=== PATIENT | female | born 1945 | race Caucasian/White ===

== ENCOUNTER 2018-05-24 20:28 | Observation (INO) ==
[2018-05-24] MEDS ORDERED: Famotidine PF Inj 20 MG/2 ML Vial IV.PUSH ONE (22:24)
[2018-05-24] MEDS ORDERED: Sod Chloride 0.9% Inj 1,000 ML IV.SIG ONE (22:24)
[2018-05-24] MEDS ORDERED: Morphine Inj 4 MG/ML Vial IV.PUSH ONE (22:24)
--- NOTE | 2018-05-24 22:41 | ED ---
HPI General Chief Complaint: Abdominal Pain Stated Complaint: N/V/D FEVER Time Seen by Provider: 05/24/18 22:12 Source: patient Mode of arrival: ambulatory Limitations: no limitations History of Present Illness HPI narrative: 73-year-old female complains of abdominal pain, nausea vomiting diarrhea, fever and body ache. Patient states that her symptoms started last night. Patient states that the abdominal pain and cramping pain intermittent pain localized to the upper abdomen. Patient denies any pain radiation. Patient states that she has mucus in the stool but no blood in the stool. Patient states that the stool smells strongly. Patient states that she has history of C. difficile about 2 years ago and the stool smells the same. Patient denies any headache. Patient denies any neck pain. Patient denies any chest pain or shortness of breath. Patient denies any dysuria or frequency. Patient denies any vaginal discharge or bleeding. Patient has history of hypertension. Patient states that she had fever at home up to 101.6 degrees this evening prior to arrival. MD complaint: Reports abdominal pain Onset (ago): hour(s) Pain Consistency: intermittent Location: Reports LUQ, RUQ and epigastric Severity: moderate Severity scale (1-10): 6 Quality: Reports cramping Radiation: Reports none Migration to: Reports no migration Relieving factors: nothing Exacerbating factors: nothing Associated symptoms: Reports nausea, vomiting, diarrhea and fever Related Data Home Medications Medication Instructions Recorded Confirmed Lactobacillus acidophilus 1 tab PO DAILY 05/24/18 05/24/18 [Acidophilus] ascorbic acid (vitamin C) [Vitamin 500 mg PO DAILY 05/24/18 05/24/18 C] aspirin 81 mg PO DAILY 05/24/18 05/24/18 cetirizine [Zyrtec] 10 mg PO DAILY 05/24/18 05/24/18 [id number] 2 tab PO DAILY 05/24/18 05/24/18 [Osteo Bi-Flex Triple Strength] levothyroxine 50 mcg PO DAILY 05/24/18 05/24/18 multivitamin 1 tab PO DAILY 05/24/18 05/24/18 omega-3 acid ethyl esters 2 cap PO BID 05/24/18 05/24/18 tramadol 50 mg PO QID 11/06/18 11/06/18 valsartan-hydrochlorothiazide 1 tab PO DAILY 05/24/18 05/24/18 Allergies Allergy/AdvReac Type Severity Reaction Status Date / Time ciprofloxacin [From Cipro] Allergy Rash Verified 05/24/18 20:46 levofloxacin [From Levaquin] Allergy Rash Verified 05/24/18 20:46 nitrofurantoin Allergy Rash Verified 05/24/18 20:46 [From Macrobid] Penicillins Allergy Rash Verified 05/24/18 20:46 Review of Systems ROS: all other systems reviewed are negative [facility] Medical History Medical History Accelerated hypertension (Acute) Clostridium difficile infection (Acute) History of hysterectomy (Acute) Hypothyroid (Acute) Hypothyroid (Acute) Pacemaker (Acute) Surgical History Surgical History Hx of tonsillectomy (Acute) Social History Social History Substance History: No History of Abuse Second Hand Smoke Exposure: No Smoking Status: Never smoker How Often Do You Have a Drink Containing Alcohol: Monthly or less Recent Travel in [facility] within the Last 8 Weeks: No Recent Out of Country Travel within the Last 8 Weeks: No Immunization History Tetanus Immunization: <5 Years Exam Narrative Exam Narrative: GENERAL: Well-nourished, well-developed patient. SKIN: Focused skin assessment warm/dry. HEAD: Normocephalic. EYES: No scleral icterus. No injection or drainage. NECK: Supple, trachea midline. No JVD or lymphadenopathy. CARDIOVASCULAR: Regular rate and rhythm without murmurs, gallops, or rubs. RESPIRATORY: Breath sounds equal bilaterally. No accessory muscle use. GASTROINTESTINAL: Abdomen soft, non-tender, nondistended. MUSCULOSKELETAL: No cyanosis, or edema. BACK: Nontender without obvious deformity. No CVA tenderness. Neurologic exam normal. Course Initial Documented Vital Signs Temperature 99.8 F H 05/24/18 20:38 Pulse Rate 115 H 05/24/18 20:38 Respiratory Rate 16 05/24/18 20:38 Blood Pressure 147/71 H 05/24/18 20:38 Pulse Oximetry 98 05/24/18 20:38 Last Documented Vital Signs Temperature 99.8 F H 05/24/18 20:38 Pulse Rate 115 H 05/24/18 20:38 Respiratory Rate 16 05/24/18 20:38 Blood Pressure 147/71 H 05/24/18 20:38 Pulse Oximetry 98 05/24/18 20:38 Medical Decision Making MDM Narrative Medical decision making narrative: 73-year-old female with abdominal pain, nausea vomiting diarrhea, fever, body ache. Normal saline solution 1 L IV bolus. Pepcid 20 mg IV. Morphine 2 mg IV. Zofran 4 mg IV. Flagyl 500 mg IV. Vancomycin 1 g IV. Normal saline solution 125 cc an hour. Medical Screen Exam Complete: Yes Emergency Medical Condition: Yes Differential Diagnosis Differential Diagnosis: Differential diagnosis including viral syndrome, gastroenteritis, gastritis, PUD, pancreatitis, cholecystitis, colitis, UTI, pyelonephritis, nephrolithiasis, sepsis. Lab Data Lab results reviewed: Yes I reviewed the patient's lab results. Result diagrams: 05/24/18 23:00 05/24/18 23:00 Lab Results 05/24/18 05/24/18 05/24/18 Range/Units 23:00 23:00 23:00 CBC w Diff Auto diff final WBC 7.6 (4.0-11.0) th/mm3 RBC 4.64 (4.00-5.30) mil/mm3 Hgb 14.0 (11.6-15.3) gm/dL Hct 41.3 (35.0-46.0) % MCV 89.0 (80.0-100.0) fL MCH 30.2 (27.0-34.0) pg MCHC 33.9 (32.0-36.0) % RDW 13.3 (11.6-17.2) % Plt Count 139 L (150-450) th/mm3 MPV 7.3 (7.0-11.0) fL Neut % (Auto) 79.5 H (16.0-70.0) % Lymph % (Auto) 13.2 (9.0-44.0) % Loup % (Auto) 6.2 (0.0-8.0) % Eos % (Auto) 0.1 (0.0-4.0) % Baso % (Auto) 1.0 (0.0-2.0) % Neut # (Auto) 6.0 (1.8-7.7) th/mm3 Lymph # (Auto) 1.0 (1.0-4.8) th/mm3 Loup # (Auto) 0.5 (0.0-0.9) th/mm3 Eos # (Auto) 0.0 (0.0-0.4) th/mm3 Baso # (Auto) 0.1 (0.0-0.2) th/mm3 WBC Differential . Differential Comment . PT 10.2 (9.8-11.6) sec INR 1.0 Ratio APTT 27.3 (23.4-31.7) sec Sodium 137 (136-145) meq/L Potassium 3.9 (3.5-5.1) meq/L Chloride 105 (98-107) meq/L Carbon Dioxide 22.9 (21.0-32.0) meq/L Anion Gap 9 (5-15) meq/L BUN 18 (7-18) mg/dL Creatinine 1.00 (0.50-1.00) mg/dL Estimated GFR 55 L (>89) mL/min Random Glucose 98 (74-106) mg/dL Calcium 9.2 (8.5-10.1) mg/dL Total Bilirubin 0.7 (0.2-1.0) mg/dL AST 38 H (15-37) U/L ALT 55 H (10-53) U/L Alkaline Phosphatase 60 (45-117) U/L Total Protein 6.6 (6.4-8.2) g/dL Albumin 3.0 L (3.4-5.0) g/dL Lipase 92 (73-393) U/L Imaging Data Attestation: I personally reviewed and interpreted this imaging study as follows : Radiologist's impression: Abdomen/Pelvis CT 05/24/18 22:24 CONCLUSION: Changes involving the right colon suggestive of mild colitis Discharge Plan Discharge Disposition Patient Disposition: 30 Still Patient Discharge Details Diagnosis: Colitis Physicians Team ED Provider: Fletcher Torres Primary Care Provider: Primary Care ThomasiCynthia Rxs /Orders / Referrals /Forms Prescriptions: No Action multivitamin Tablet 1 tab PO DAILY RF: 0 ascorbic acid (vitamin C) [Vitamin C] 1,000 mg Tablet 500 mg PO DAILY RF: 0 tramadol 50 mg Tablet 50 mg PO QID RF: 0 valsartan-hydrochlorothiazide 80-12.5 mg Tablet 1 tab PO DAILY RF: 0 levothyroxine 50 mcg Tablet 50 mcg PO DAILY RF: 0 aspirin 81 mg Tablet,Chewable 81 mg PO DAILY RF: 0 Lactobacillus acidophilus [Acidophilus] Capsule 1 tab PO DAILY RF: 0 omega-3 acid ethyl esters 1 gram Capsule 2 cap PO BID RF: 0 cetirizine [Zyrtec] 10 mg Capsule 10 mg PO DAILY RF: 0 [id number]-antonio-bosw [Osteo Bi-Flex Triple Strength] 750 mg-644 mg- 30 mg-1 mg Tablet 2 tab PO DAILY RF: 0 Status ED Status: With Doctor
[2018-05-24 23:23] LABS: Baso # (Auto) 0.1 th/mm3 (0.0-0.2); Eos % (Auto) 0.1 % (0.0-4.0); Hematocrit 41.3 % (35.0-46.0); Lymph % (Auto) 13.2 % (9.0-44.0); Mean Corpuscular HGB Conc 33.9 % (32.0-36.0); Mean Corpuscular Hemoglobin 30.2 pg (27.0-34.0); Mean Platelet Volume 7.3 fL (7.0-11.0); Mono # (Auto) 0.5 th/mm3 (0.0-0.9); Mono % (Auto) 6.2 % (0.0-8.0); Neut % (Auto) 79.5 % (16.0-70.0); Platelet Count 139 th/mm3 (150-450); Red Blood Count 4.64 mil/mm3 (4.00-5.30); Red Cell Distribution Width 13.3 % (11.6-17.2); White Blood Count 7.6 th/mm3 (4.0-11.0)
[2018-05-24 23:31] LABS: Chloride 105 meq/L (98-107); Potassium 3.9 meq/L (3.5-5.1); Sodium 137 meq/L (136-145)
[2018-05-24 23:34] LABS: Calcium 9.2 mg/dL (8.5-10.1)
[2018-05-24 23:35] LABS: Anion Gap 9 meq/L (5-15); Blood Urea Nitrogen 18 mg/dL (7-18); Carbon Dioxide 22.9 meq/L (21.0-32.0); Glucose,Random 98 mg/dL (74-106); Lipase 92 U/L (73-393)
[2018-05-24 23:37] LABS: Activated Partial Thrombo Time 27.3 sec (23.4-31.7); Prothrombin Time 10.2 sec (9.8-11.6)
[2018-05-24 23:38] LABS: Alanine Aminotransferase 55 U/L (10-53); Aspartate Aminotransferase 38 U/L (15-37); Glomerular Filtration Rate 55 mL/min (>89)
[2018-05-24 23:39] LABS: Total Protein 6.6 g/dL (6.4-8.2)
[2018-05-24 23:41] LABS: Alkaline Phosphatase 60 U/L (45-117)
--- NOTE | 2018-05-25 00:10 | CT ---
EXAM DATE: 05/24/2018 11:59 PM EST AGE/SEX: 73 years / Female INDICATIONS: Abdominal pain. Nausea. Vomiting. Diarrhea. Fever. CLINICAL DATA: This is the patient's initial encounter. Patient reports that signs and symptoms have been present for 1 day and indicates a pain score of 5/10. MEDICAL/SURGICAL HISTORY: Hypertension. Hysterectomy. CABG. ORAL CONTRAST: No oral contrast ingested. RADIATION DOSE: 11.64 CTDI (mGy) COMPARISON: No prior exams available for comparison. TECHNIQUE: Multiple contiguous axial images were obtained through the abdomen and pelvis following b olus infusion of 100 ml Omnipaque 350 (iohexol) nonionic water-soluble contrast as a single exam do se. No oral contrast ingested. Using automated exposure control and adjustment of the mA and/or kV a ccording to patient size, radiation dose was kept as low as reasonably achievable to obtain optimal d iagnostic quality images. DICOM format image data is available electronically for review and compari son. FINDINGS: Lower Lungs: The visualized lower lungs are clear. Liver: The liver has a homogeneous density without space-occupying lesion. There is no dilation of th e biliary tree. Spleen: Homogeneous density without enlargement. Pancreas: Unremarkable without mass or calcification. Kidneys: Tiny cyst arising in the posterior medial midpole cortex of the left kidney. Adrenal Glands: Unremarkable. Aorta: The aorta and proximal iliac vessels are grossly unremarkable without aneurysmal dilation. Bowel/Mesentery: There appears to be some concentric fold thickening/wall thickening in the right co gemma, most notably in the mid ascending region. There is slight adjacent fatty tissue induration.. The bowel is nondilated throughout. Abdominal Wall: Intact. Retroperitoneum: No evidence of adenopathy in the retrocrural, para-aortic, or deep pelvic regions. Bladder: Contours are smooth. Reproductive Organs: Uterus surgically absent. No evidence of pelvic mass or free fluid. Inguinal: The inguinal region is unremarkable without evidence of adenopathy. Bony Structures: Unremarkable. CONCLUSION: Changes involving the right colon suggestive of mild colitis Electronically signed by: Moiz Vazquez MD 05/25/2018 12:08 AM EST
[2018-05-25] MEDS ORDERED: Vancomycin Inj 1,000 MG in Sodium Chlor 0.9% Inj 250 ML IV.SIG ONE (00:19)
[2018-05-25 00:35] LABS: Bilirubin,Urine Negative (Negative); Clarity,Urine Clear (Clear); Color,Urine Yellow (Yellw/Straw); Glucose,Urine (UA) Negative (Negative); Leukocyte Esterase,Urine Negative (Negative); Nitrite,Urine Negative (Negative); PH,Urine 5.5 (5.0-8.5); Specific Gravity,Urine Less/Equal 1.005 (1.002-1.035); Urobilinogen,Urine 0.2 mg/dL (Less than 2)
[2018-05-25 00:40] LABS: Bacteria,Urine Occasional /hpf; RBC,Urine 0-3 /hpf (0-3); Squamous Epithelial Cell,Urine 0-5 /hpf (0-5)
[2018-05-25] MEDS: Sod Chloride 0.9% Inj 1,000 ML IV.CONT SCH ×2 (02:25→15:27)
[2018-05-25 11:17] LABS: Hepatitits B Surface Antigen Nonreactive (Nonreactive)
[2018-05-25 11:21] LABS: Hepatitis A IgM Antibody Nonreactive (Nonreactive)
[2018-05-25] MEDS ORDERED: Non-Formulary Drug (Valsartan-Hydrochlorothiazide [Valsartan-Hydrochlorothiazide] 1 TAB) PO SCH (14:45)
--- NOTE | 2018-05-25 15:01 | P.HPIM ---
[facility] No Primary Care Physician Chief Complaint: Nausea vomiting diarrhea History of Present Illness: 73-year-old white female with a history of hypothyroidism, C. difficile presents with 2-day history of right-sided abdominal pain, nausea, vomiting, diarrhea, and fever. Patient reports having loose stools almost every hour and due to the symptoms came to the emergency room for evaluation. She also reports a history of C. difficile and was worried that this may be a recurrence of her C. difficile. She has not seen any blood in her stools. She has not had any unusual food intake during the past week. She reports she had a colonoscopy performed about 2 years ago which only showed some polyps. She has not had any recent weight loss. Diagnosis (1) Colitis: Review of Systems ROS: all other systems reviewed are negative [facility] Medical History Medical History Hypothyroid (Acute) Accelerated hypertension (Chronic) Clostridium difficile infection (Chronic) Hypothyroid (Chronic) Surgical History Surgical History History of hysterectomy (Chronic) Hx of tonsillectomy (Chronic) Pacemaker (Chronic) Family History Family History Father Colon cancer Social History Social History Substance History: No History of Abuse Second Hand Smoke Exposure: No Smoking Status: Never smoker How Often Do You Have a Drink Containing Alcohol: Never Recent Travel in [facility] within the Last 8 Weeks: No Recent Out of Country Travel within the Last 8 Weeks: No Immunization History Tetanus Immunization: <5 Years Medications and Allergies Allergies Allergy/AdvReac Type Severity Reaction Status Date / Time ciprofloxacin [From Cipro] Allergy Rash Verified 05/24/18 20:46 levofloxacin [From Levaquin] Allergy Rash Verified 05/24/18 20:46 nitrofurantoin Allergy Rash Verified 05/24/18 20:46 [From Macrobid] Penicillins Allergy Rash Verified 05/24/18 20:46 Home Medications Medication Instructions Recorded Confirmed Type Lactobacillus acidophilus 1 tab PO DAILY 05/24/18 05/24/18 History [Acidophilus] ascorbic acid (vitamin C) [Vitamin 500 mg PO DAILY 05/24/18 05/24/18 History C] aspirin 81 mg PO DAILY 05/24/18 05/24/18 History cetirizine [Zyrtec] 10 mg PO DAILY 05/24/18 05/24/18 History [id number]-C-antonio-bosw 2 tab PO DAILY 05/24/18 05/24/18 History [Osteo Bi-Flex Triple Strength] levothyroxine 50 mcg PO DAILY 05/24/18 05/24/18 History multivitamin 1 tab PO DAILY 05/24/18 05/24/18 History omega-3 acid ethyl esters 2 cap PO BID 05/24/18 05/24/18 History tramadol 50 mg PO QID 05/24/18 05/24/18 History valsartan-hydrochlorothiazide 1 tab PO DAILY 05/24/18 05/24/18 History Active Medications: Active Medications Aspirin (Aspirin Chew) 81 mg PO DAILY SHAKIR Aztreonam 1,000 mg/ Sodium (Chloride) 100 mls @ 200 mls/hr IV.SIG Q8H [facility] Last Infusion: 05/25/18 09:01 Dose: Infused Metronidazole/Sodium Chloride (Flagyl 500 Mg Inj) 100 mls @ 100 mls/hr IV.SIG Q6H SHAKIR Last Infusion: 05/25/18 10:00 Dose: Infused Sodium Chloride (Ns Inj) 1,000 mls @ 100 mls/hr IV.CONT .Q10H SHAKIR Last Admin: 05/25/18 02:25 Dose: 100 mls/hr Lactobacillus Acidophilus (Lactinex) 1 tab PO BID [facility] Levothyroxine Sodium (Synthroid) 50 mcg PO DAILY [facility] Non-Formulary Medication (Cetirizine [Zyrtec]) 10 mg PO DAILY [facility] Non-Formulary Medication (Valsartan-Hydrochlorothiazide [Valsartan- Hydrochlorothiazide]) 1 tab PO DAILY [facility] Ondansetron HCl (Zofran Inj) 4 mg IV.PUSH Q6H PRN PRN Reason: NAUSEA OR VOMITING Tramadol HCl (Ultram) 50 mg PO Q6H PRN PRN Reason: pain 1 to 10 Physical Exam Vital signs: Last Vital Signs Temp 100.1 F H 05/25/18 12:00 Pulse 92 H 05/25/18 12:00 Resp 20 05/25/18 12:00 BP 130/60 05/25/18 12:00 Pulse Ox 96 05/25/18 12:00 Intake & Output 05/23/18 05/24/18 05/25/18 05/26/18 06:59 06:59 06:59 06:59 Intake Total 1830 / 1830 200 / 200 Output Total 650 / 650 Balance 1180 / 1180 200 / 200 Weight 68.1 kg Narrative: GENERAL: Well-nourished well-developed white female no acute distress SKIN: Warm and dry. HEAD: Atraumatic. Normocephalic. EYES: Pupils equal and round. No scleral icterus. No injection or drainage. ENT: No nasal bleeding or discharge. Mucous membranes pink and moist. NECK: Trachea midline. No JVD. CARDIOVASCULAR: Regular rate and rhythm. RESPIRATORY: No accessory muscle use. Clear to auscultation. Breath sounds equal bilaterally. GASTROINTESTINAL: Abdomen soft, mild right lower quadrant abdominal tenderness with no rebound or guarding, nondistended. Hepatic and splenic margins not palpable. Normoactive bowel sounds MUSCULOSKELETAL: Extremities without clubbing, cyanosis, or edema. No obvious deformities. NEUROLOGICAL: Awake and alert. No obvious cranial nerve deficits. Motor grossly within normal limits. Five out of 5 muscle strength in the arms and legs. Normal speech. PSYCHIATRIC: Appropriate mood and affect; insight and judgment normal. Assessment and Plan (1) Colitis: Code(s): K52.9 - Noninfective gastroenteritis and colitis, unspecified Status: Acute Plan 73-year-old white female with a history of hypothyroidism, hypertension presents with a 2-day history of intractable nausea, vomiting, diarrhea, and fever 1. Acute colitis -patient has been started on Flagyl and Azactam due to allergies with Cipro and penicillin, C. difficile results are negative, continue IV fluid hydration supportive care, Lactinex. Patient counseled to follow with GI as an outpatient after treatment course for evaluation for colonoscopy. Placed on clear liquid diet which she has tolerated overnight, will advance to full liquid as tolerated. 2. History of hypothyroidism-resume Synthroid 3. History of hypertension, resume home antihypertensives. H&P: Quality VTE Deep Vein Thrombosis/Pulmonary Embolism Present on Admission: No
[2018-05-25] MEDS: Lactobacillus Acidophilus/L. Spores Tablet PO SCH ×2 (15:45→23:14)
[2018-05-25] MEDS ORDERED: Loperamide 2 MG Capsule PO ONE (17:44)
[2018-05-25] MEDS ORDERED: Acetaminophen 325 MG Tablet PO PRN (17:45)
[2018-05-26] MEDS: Sod Chloride 0.9% Inj 1,000 ML IV.CONT SCH ×3 (04:11→18:26)
[2018-05-26 08:51] LABS: Baso % (Auto) 0.7 % (0.0-2.0); Eos % (Auto) 0.5 % (0.0-4.0); Hematocrit 32.9 % (35.0-46.0); Hemoglobin 11.5 gm/dL (11.6-15.3); Lymph # (Auto) 0.9 th/mm3 (1.0-4.8); Lymph % (Auto) 21.1 % (9.0-44.0); Mean Corpuscular Volume 88.5 fL (80.0-100.0); Mean Platelet Volume 7.4 fL (7.0-11.0); Mono # (Auto) 0.4 th/mm3 (0.0-0.9); Mono % (Auto) 8.9 % (0.0-8.0); Neut # (Auto) 2.8 th/mm3 (1.8-7.7); Neut % (Auto) 68.8 % (16.0-70.0); Platelet Count 98 th/mm3 (150-450); Red Blood Count 3.72 mil/mm3 (4.00-5.30); Red Cell Distribution Width 13.9 % (11.6-17.2); White Blood Count 4.1 th/mm3 (4.0-11.0)
[2018-05-26 08:52] LABS: Platelet Morphology Normal (Normal)
[2018-05-26 08:56] LABS: Calcium 8.2 mg/dL (8.5-10.1); Carbon Dioxide 20.5 meq/L (21.0-32.0); Potassium 3.8 meq/L (3.5-5.1)
[2018-05-26] MEDS ORDERED: HCTZ PO SCH (09:00)
[2018-05-26] MEDS ORDERED: VALSARTAN PO SCH (09:00)
[2018-05-26] MEDS: Lactobacillus Acidophilus/L. Spores Tablet PO SCH ×2 (09:14→20:35)
[2018-05-26] MEDS: Levothyroxine 50 MCG Tablet PO SCH (09:14)
--- NOTE | 2018-05-26 10:49 | P.PNIM ---
Subjective Interval history: Follow-up colitis and black stools. Patient seen and examined, sitting in bed comfortably no apparent distress. Patient states that she has had two bouts of black tarry diarrhea since midnight. Low-grade temperatures overnight. Has been tolerating clear liquids without any nausea or vomiting or abdominal pain. Physical Exam Vital signs: Vital Signs 05/25/18 12:00 05/25/18 20:00 05/26/18 00:00 Temperature 100.1 F H 100.7 F H 99.7 F H Pulse Rate 92 H 87 88 Respiratory Rate 20 20 20 Blood Pressure 130/60 132/62 128/60 Pulse Oximetry 96 96 94 L 05/26/18 02:20 05/26/18 08:00 05/26/18 09:12 Temperature 100.7 F H 98.7 F Pulse Rate 82 Respiratory Rate 18 16 Blood Pressure 128/62 Pulse Oximetry 97 Intake & Output 05/25/18 05/26/18 05/26/18 18:59 06:59 18:59 Intake Total 1625 / 1625 2460 / 2460 Balance 1625 / 1625 2460 / 2460 Weight 68.6 kg Intake: IV 1400 / 1400 2400 / 2400 NS Inj 1,000 ML @ 100 mls/hr IV 1000 / 1000 2000 / 2000 .CONT .Q10H SHAKIR Rx#:[id number] Azactam Inj 1,000 MG In NS Inj 200 / 200 200 / 200 100 ML @ 200 mls/hr IV.SIG Q8H SHAKIR Rx#:[id number] Flagyl 500 MG Inj 100 ML @ 100 200 / 200 200 / 200 mls/hr IV.SIG Q6H SHAKIR Rx#: [id number] Oral 225 / 225 60 / 60 Other: # Voids 5 2 Date of Last Bowel Movement 05/25/18 # Bowel Movements 5 3 Narrative: GENERAL: Well-nourished well-developed white female no acute distress SKIN: Warm and dry. HEAD: Atraumatic. Normocephalic. EYES: Pupils equal and round. No scleral icterus. No injection or drainage. ENT: No nasal bleeding or discharge. Mucous membranes pink and moist. NECK: Trachea midline. No JVD. CARDIOVASCULAR: Regular rate and rhythm. RESPIRATORY: No accessory muscle use. Clear to auscultation. Breath sounds equal bilaterally. GASTROINTESTINAL: Abdomen soft, mild right and left lower quadrant abdominal tenderness with no rebound or guarding, nondistended. Normoactive bowel sounds MUSCULOSKELETAL: Extremities without clubbing, cyanosis, or edema. No obvious deformities. NEUROLOGICAL: Awake and alert. No obvious cranial nerve deficits. Motor grossly within normal limits. Five out of 5 muscle strength in the arms and legs. Normal speech. PSYCHIATRIC: Appropriate mood and affect; insight and judgment normal. Results - Labs CBC & Chem 7: 05/26/18 07:30 05/26/18 07:30 Laboratory Results - last 24 hr 05/25/18 05/25/18 05/26/18 04:51 06:10 07:30 CBC w Diff Slide review pending WBC 4.1 RBC 3.72 L Hgb 11.5 L D Hct 32.9 L MCV 88.5 MCH 31.0 MCHC 35.0 RDW 13.9 Plt Count 98 L MPV 7.4 Neut % (Auto) 68.8 Lymph % (Auto) 21.1 Rowan % (Auto) 8.9 H Eos % (Auto) 0.5 Baso % (Auto) 0.7 Neut # (Auto) 2.8 Lymph # (Auto) 0.9 L Rowan # (Auto) 0.4 Eos # (Auto) 0.0 Baso # (Auto) 0.0 WBC Differential . Diff Scan Auto diff confirmed Differential Comment . Platelet Estimate Low L Platelet Morphology Normal Sodium Potassium Chloride Carbon Dioxide Anion Gap BUN Creatinine Estimated GFR Random Glucose Calcium Stl C.difficile DNA Amp Negative St C. diff Tox Epid 027 Negative Hepatitis A IgM Ab Nonreactive Hep Bs Antigen Nonreactive Hep B Core IgM Ab Nonreactive Hep C IgG Ab Nonreactive 05/26/18 07:30 CBC w Diff WBC RBC Hgb Hct MCV MCH MCHC RDW Plt Count MPV Neut % (Auto) Lymph % (Auto) Rowan % (Auto) Eos % (Auto) Baso % (Auto) Neut # (Auto) Lymph # (Auto) Rowan # (Auto) Eos # (Auto) Baso # (Auto) WBC Differential Diff Scan Differential Comment Platelet Estimate Platelet Morphology Sodium 141 Potassium 3.8 Chloride 113 H D Carbon Dioxide 20.5 L Anion Gap 8 BUN 10 Creatinine 0.73 Estimated GFR 79 L Random Glucose 93 Calcium 8.2 L D Stl C.difficile DNA Amp St C. diff Tox Epid 027 Hepatitis A IgM Ab Hep Bs Antigen Hep B Core IgM Ab Hep C IgG Ab Microbiology 05/24/18 23:10 Blood - Peripheral Aerobic Blood Culture - Preliminary No growth in 1 day 05/24/18 23:10 Blood - Peripheral Anaerobic Blood Culture - Preliminary No growth in 1 day 05/24/18 23:00 Blood - Peripheral Aerobic Blood Culture - Preliminary No growth in 1 day 05/24/18 23:00 Blood - Peripheral Anaerobic Blood Culture - Preliminary No growth in 1 day Assessment and Plan - Assessment (1) Colitis Code(s): K52.9 - Noninfective gastroenteritis and colitis, unspecified Status : Acute (2) GI bleed Code(s): K92.2 - Gastrointestinal hemorrhage, unspecified Status: Acute - Plan This is a 73-year-old white female with a history of hypothyroidism, hypertension presents with a 2-day history of intractable nausea, vomiting, diarrhea, and fever. Acute colitis GI bleed -Abdomen/pelvis CT showing signs of mild colitis. -Patient has been started on Flagyl and Azactam due to allergies with Cipro and penicillin. Continue Lactinex. -Still having low-grade fevers overnight. -C. difficile results are negative. -Continue IV fluid hydration. Tolerating clear liquids for now. Nausea and vomiting improved. -Patient was initially counseled to follow-up with GI outpatient for an evaluation of a colonoscopy, although patient has complaints of black tarry stool this morning. -Gastroenterology has been consulted and awaiting input and recommendations. -Will trend H&H's. Did drop overnight, hemoglobin 14-11.5 today. This may be dilutional or secondary to active bleeding. -Check occult stool. -Pain control with Ultram, no pain at this present time. History of hypothyroidism: Resume Synthroid. History of hypertension:Resume home antihypertensives. DVT prophylaxis: SCDs. Hold chemical prophylaxis for now, possible bleeding. Discharge Planning: Awaiting gastroenterology input as well as clinical improvement. Still having fevers
[2018-05-26] MEDS: Pantoprazole Inj 40 MG Vial IV.PUSH SCH (13:03)
[2018-05-26 13:40] LABS: Hematocrit 37.1 % (35.0-46.0); Hemoglobin 11.9 gm/dL (11.6-15.3)
[2018-05-26 14:39] LABS: % Iron Saturation 8.2 % (20-50)
[2018-05-26] MEDS: VALSARTAN 80 MG PO SCH (17:06)
[2018-05-26] MEDS ORDERED: PEG 3350/E-Lyte Soln 4000 ML Bottle PO ONE (17:18)
--- NOTE | 2018-05-26 18:22 | MB ---
cc: Rowena Frances MD, Shahabuddin DO Katie, Malan MD DATE: 05/26/2018 PRIMARY CARE PHYSICIAN: Eugenia Gonzales MD REQUESTING PHYSICIAN: Nehemias Batista DO REASON FOR CONSULTATION: Colitis, abdominal pain with diarrhea. HISTORY OF PRESENT ILLNESS: Ms. Patel is a 73-year-old lady admitted with diarrhea for a few days associated with nausea, vomiting and fevers. She said this felt similar to her C. difficile infection which she had 7 years ago after knee surgery requiring antibiotics. Stool studies have been obtained and they are unremarkable for C. difficile at this time. Her last colonoscopy was about 2 years ago, which she reports as being normal. REVIEW OF SYSTEMS: Currently still having diarrhea, but no nausea, vomiting or abdominal pain. PAST MEDICAL HISTORY: Hypothyroidism, hypertension, previous C. difficile infection, hypothyroidism. PAST SURGICAL HISTORY: Hysterectomy, tonsillectomy, pacemaker placement, colonoscopy 2-3 years ago. FAMILY HISTORY: Significant for colon cancer. SOCIAL HISTORY: No tobacco, no alcohol reported. PHYSICAL EXAMINATION: GENERAL: Reveals a well-nourished lady in no apparent distress. VITAL SIGNS: Stable. HEAD AND NECK: Anicteric sclerae. CHEST: Bilateral air entry with rales. ABDOMEN: Soft, some tenderness in the right lower quadrant. No guarding, no rigidity. CENTRAL NERVOUS SYSTEM: Nonfocal. LABORATORY DATA: Reveal white cell count of 4.1, hemoglobin 11.9. Creatinine is 0.73, AST 38, ALT 55. CT of the abdomen and pelvis reveals right-sided colitis. IMPRESSION: Right-sided colitis with possible melena. RECOMMENDATIONS: EGD and colonoscopy discussed with the patient. She is agreeable. This will be planned for tomorrow. GoLYTELY prep will be used. Continue to monitor labs. Further recommendations to follow after the above. Thank you for this referral. Rowena Frances MD HZ/neel , 05:18 PM , 05:27 PM
[2018-05-26 20:24] LABS: Hematocrit 37.2 % (35.0-46.0); Hemoglobin 12.6 gm/dL (11.6-15.3)
[2018-05-27] MEDS: Sod Chloride 0.9% Inj 1,000 ML IV.CONT SCH ×2 (01:56→16:13)
[2018-05-27 07:08] LABS: Baso % (Auto) 0.4 % (0.0-2.0); Eos # (Auto) 0.1 th/mm3 (0.0-0.4); Eos % (Auto) 1.6 % (0.0-4.0); Hematocrit 33.2 % (35.0-46.0); Hemoglobin 11.7 gm/dL (11.6-15.3); Lymph # (Auto) 1.5 th/mm3 (1.0-4.8); Lymph % (Auto) 32.1 % (9.0-44.0); Mean Corpuscular HGB Conc 35.2 % (32.0-36.0); Mean Corpuscular Hemoglobin 30.8 pg (27.0-34.0); Mean Corpuscular Volume 87.7 fL (80.0-100.0); Mean Platelet Volume 7.3 fL (7.0-11.0); Mono # (Auto) 0.5 th/mm3 (0.0-0.9); Mono % (Auto) 10.5 % (0.0-8.0); Neut # (Auto) 2.4 th/mm3 (1.8-7.7); Neut % (Auto) 55.4 % (16.0-70.0); Platelet Count 88 th/mm3 (150-450); Red Blood Count 3.79 mil/mm3 (4.00-5.30); Red Cell Distribution Width 13.9 % (11.6-17.2); White Blood Count 4.5 th/mm3 (4.0-11.0)
[2018-05-27 07:31] LABS: RBC Morphology Normal (Normal)
[2018-05-27 07:32] LABS: Platelet Morphology Normal (Normal)
[2018-05-27] MEDS: Levothyroxine 50 MCG Tablet PO SCH (08:39)
[2018-05-27] MEDS: Lactobacillus Acidophilus/L. Spores Tablet PO SCH (08:39)
[2018-05-27] MEDS: VALSARTAN 80 MG PO SCH (10:11)
[2018-05-27] MEDS: Pantoprazole Inj 40 MG Vial IV.PUSH SCH (10:11)
[2018-05-27 10:19] VITALS: RESP 16
[2018-05-27] MEDS ORDERED: Chlorhexidine Gluconate 2% 1 Pack (2 Cloths) TOPICAL ONE (12:26)
[2018-05-27] MEDS ORDERED: Metoprolol Tartrate 25 MG Tablet PO ONE (12:26)
--- NOTE | 2018-05-27 12:48 | P.PNIM ---
Subjective Interval history: 73-year-old female who is seen and examined today for follow-up on colitis and melena. Patient states that she underwent prep for colonoscopy last night and had documented every time that she had a bowel movement which was approximately 13 times. Patient denies any coloration to the stool at this time. Patient is concerned that she may have infectious diarrhea. I discussed with her that the C. difficile culture was negative. She indicates that she has some chicken and she was worried about Salmonella. Patient blood pressure is mildly elevated. Patient remains afebrile Physical Exam Vital signs: Vital Signs 05/26/18 16:00 05/26/18 20:00 05/27/18 00:00 Temperature 98.7 F 99 F 97.7 F Pulse Rate 79 70 73 Respiratory Rate 17 20 20 Blood Pressure 150/68 H 142/85 H 141/73 H Pulse Oximetry 98 96 99 05/27/18 08:00 Temperature 97.7 F Pulse Rate 66 Respiratory Rate 16 Blood Pressure 150/69 H Pulse Oximetry 96 Intake & Output 05/26/18 05/27/18 05/27/18 18:59 06:59 18:59 Intake Total 1300 / 1300 3760 / 3760 100 / 100 Balance 1300 / 1300 3760 / 3760 100 / 100 Weight 70.9 kg Intake: IV 1300 / 1300 1400 / 1400 100 / 100 NS Inj 1,000 ML @ 100 mls/hr IV 1000 / 1000 1000 / 1000 .CONT .Q10H SHAKIR Rx#:[id number] Azactam Inj 1,000 MG In NS Inj 100 / 100 200 / 200 100 ML @ 200 mls/hr IV.SIG Q8H SHAKIR Rx#:[id number] Flagyl 500 MG Inj 100 ML @ 100 200 / 200 200 / 200 100 / 100 mls/hr IV.SIG Q6H SHAKIR Rx#: [id number] Oral 360 / 360 Oral Supplement 1999 / 1999 Other: # Voids 10 Date of Last Bowel Movement 05/25/18 # Bowel Movements 12 Narrative: GENERAL: Well-developed, well-nourished, in no acute distress. alert and orientated HEENT: Head is normocephalic without any lesions or masses noted. Facial features are symmetric. Eyes: Extraocular muscles are intact. Conjunctivae were clear. NECK: Supple without any masses. Trachea midline no deviation. No JVD, CARDIAC: Regular rhythm, regular rate. S1/S2 are heard. No murmurs gallops or rubs. LUNGS: Clear to auscultation bilaterally. No wheeze, rhonchi or rales. No use of accessory muscles on inspiration or expiration. ABDOMEN: Soft, nontender. Nondistended. Bowel sounds heard in all 4 quadrants. No organomegaly or masses. Negative rebound, negative guarding EXTREMITIES: No edema, pulses are equal bilaterally. No cyanosis or clubbing NEUROLOGY: Mood and affect appear appropriate. Cranial nerves II through XII grossly intact. Moving all extremities, speech is clear Results - Labs CBC & Chem 7: 05/27/18 06:25 05/26/18 07:30 Laboratory Results - last 24 hr 05/26/18 05/26/18 05/26/18 07:30 13:30 20:00 CBC w Diff WBC RBC Hgb 11.9 12.6 Hct 37.1 37.2 MCV MCH MCHC RDW Plt Count MPV Neut % (Auto) Lymph % (Auto) [place] % (Auto) Eos % (Auto) Baso % (Auto) Neut # (Auto) Lymph # (Auto) [place] # (Auto) Eos # (Auto) Baso # (Auto) WBC Differential Diff Scan Differential Comment Platelet Estimate Platelet Morphology RBC Morphology Iron 20 L TIBC 245 L % Saturation 8.2 L 05/27/18 06:25 CBC w Diff Slide review pending WBC 4.5 RBC 3.79 L Hgb 11.7 Hct 33.2 L MCV 87.7 MCH 30.8 MCHC 35.2 RDW 13.9 Plt Count 88 L MPV 7.3 Neut % (Auto) 55.4 Lymph % (Auto) 32.1 [place] % (Auto) 10.5 H Eos % (Auto) 1.6 Baso % (Auto) 0.4 Neut # (Auto) 2.4 Lymph # (Auto) 1.5 [place] # (Auto) 0.5 Eos # (Auto) 0.1 Baso # (Auto) 0.0 WBC Differential . Diff Scan Auto diff confirmed Differential Comment . Platelet Estimate Low L Platelet Morphology Normal RBC Morphology Normal Iron TIBC % Saturation Microbiology 05/24/18 23:10 Blood - Peripheral Aerobic Blood Culture - Preliminary No growth in 3 days 05/24/18 23:10 Blood - Peripheral Anaerobic Blood Culture - Preliminary No growth in 3 days 05/24/18 23:00 Blood - Peripheral Aerobic Blood Culture - Preliminary No growth in 3 days 05/24/18 23:00 Blood - Peripheral Anaerobic Blood Culture - Preliminary No growth in 3 days 05/26/18 15:30 Stool Stool Occult Blood (KRISTEN) - Final Hemoccult positive Assessment and Plan - Assessment (1) Colitis Code(s): K52.9 - Noninfective gastroenteritis and colitis, unspecified Status : Acute (2) GI bleed Code(s): K92.2 - Gastrointestinal hemorrhage, unspecified Status: Acute - Plan Acute colitis with melena -Abdomen/pelvis CT showing signs of mild colitis. -Continue on Flagyl and Azactam due to allergies with Cipro and penicillin. Continue Lactinex. -C. difficile results are negative. -Continue IV fluid hydration. -Gastroenterology has been consulted and plans on panendoscopy today -Hemoglobin has remained stable -Pain control with Ultram, no pain at this present time. -Obtain stool for enteric pathogen History of hypothyroidism: -Continue Synthroid History of hypertension: -Home medication continued DVT prophylaxis: -Sequential compression devices, avoid chemical prophylaxis secondary to melena Discharge Planning: Discharge planning once cleared by GI
[2018-05-27] MEDS ORDERED: Sodium Chlor 0.9% Inj 500 ML IV.SIG SCH (13:00)
[2018-05-27] MEDS ORDERED: Lidocaine PF 1% Inj 5 ML Syringe INFILTRATN ONE ×2 (13:17)
--- NOTE | 2018-05-27 13:27 | GIPROC ---
[facility] [address] [place] [address], [id number] EGD PROCEDURE REPORT EXAM DATE: 05/27/2018 PATIENT NAME: Tanika Patel MR #: [id number] BIRTHDATE: 1945 ATTENDING: Rowena Frances MD ORDER #: [id number] JOINERS SUPERVISOR: Danyel Austin and Caroline Anna STATUS: inpatient INDICATIONS: The patient is a 73 yr old female here for an EGD due to iron deficiency anemia PROCEDURE PERFORMED: EGD w/ biopsy MEDICATIONS: None and Per Anesthesia. TOPICAL ANESTHETIC: CONSENT: The patient understands the risks and benefits of the procedure and understands that these risks include, but are not limited to: sedation, allergic reaction, infection, perforation and/or bleeding. Alternative means of evaluation and treatment include, among others: physical exam, x-rays, and/or surgical intervention. The patient elects to proceed with this endoscopic procedure. medical equipment was checked for proper function. Hand hygiene and appropriate measures for infection prevention was taken. After the risks, benefits and alternatives of the procedure were thoroughly explained, Informed consent was verified, confirmed and timeout was successfully executed by the treatment team. The patient was anesthetized with topical anesthesia and the EC-[id number] (Pedi C) endoscope was introduced through the mouth and advanced to the second portion of the duodenum. Retroflexed views revealed no abnormalities The gastroscope was then slowly withdrawn and removed. ESOPHAGUS: There was LA Class A esophagitis noted. A biopsy was performed using cold forceps. Sample sent for histology. Stomach showed gastritis, biopsied. Duodenum Normal ADVERSE EVENTS: There were no complications. IMPRESSIONS: 1. There was LA Class A esophagitis noted; biopsy was performed 2. Retroflexed views revealed no abnormalities RECOMMENDATIONS: 1. Anti-reflux regimen 2. Continue PPI 3. Avoid NSAIDS PATIENT CONDITION: stable DISPOSITION: Inpatient REPEAT EXAM: Return 1 year EGD pending biopsy results Rowena Frances MD eSigned: Rowena Frances MD 05/27/2018 1:26 PM cc:
--- NOTE | 2018-05-27 13:37 | GIPROC ---
[facility] [address] [place] [address], [id number] COLONOSCOPY PROCEDURE REPORT EXAM DATE: 05/27/2018 PATIENT NAME: Tanika Patel MR #: [id number] BIRTHDATE: 1945 ENDOSCOPIST: Rowena Frances MD ORDER #: [id number] TERRA COTTA MOLD MAKER: Danyel Austin and Caroline Anna STATUS: inpatient INDICATIONS: The patient is a 73 yr old female here for a colonoscopy due to iron deficiency anemia and hematochezia PROCEDURE PERFORMED: Colonoscopy with biopsy Colonoscopy, incomplete MEDICATIONS: None and Per Anesthesia. PREP QUALITY: good ESTIMATED BLOOD LOSS: None CONSENT: The patient understands the risks and benefits of the procedure and understands that these risks include, but are not limited to: sedation, allergic reaction, infection, perforation and/or bleeding. Alternative means of evaluation and treatment include, among others: physical exam, x-rays, and/or surgical intervention. The patient elects to proceed with this endoscopic procedure. medical equipment was checked for proper function. Hand hygiene and appropriate measures for infection prevention was taken. After the risks, benefits and alternatives of the procedure were thoroughly explained, Informed consent was verified, confirmed and timeout was successfully executed by the treatment team. A digital exam revealed external hemorrhoids The Pentax EC-3490Li endoscope was introduced through the anus and advanced to the cecum, which was identified by both the appendix and ileocecal valve. The instrument was then slowly withdrawn as the colon was fully examined. COLON FINDINGS: There was moderate diverticulosis noted in the sigmoid colon with associated muscular hypertrophy and angulation. No bleeding was noted from the diverticulosis. Unable to advance scope beyond the sigmoid colon. Retroflexed views revealed internal hemorrhoids and Retroflexed views revealed medium internal hemorrhoids The scope was then completely withdrawn from the patient and the procedure terminated. ADVERSE EVENTS: There were no complications. IMPRESSIONS: 1. There was moderate diverticulosis noted in the sigmoid colon 2. Unable to advance scope beyond the sigmoid colon 3. Retroflexed views revealed internal hemorrhoids 4. Retroflexed views revealed medium internal hemorrhoids 5. Revealed external hemorrhoids RECOMMENDATIONS: 1. Benefiber 2 tsp daily 2. Continue surveillance 3. Yearly hemoccult 4. Barium enema as out patient RECALL: Return 1 year Colonoscopy Rowena Frances MD eSigned: Rowena Frances MD 05/27/2018 1:37 PM cc:
[2018-05-27 13:54] VITALS: TEMP 97.5; O2SAT 100
[2018-05-27 14:04] VITALS: BP 158/77; PULSE 75
--- NOTE | 2018-05-27 15:18 | P.DS ---
Date of admission: 05/25/18 00:35 Primary care physician: No Primary Care Physician Attending physician on discharge: Valeriano Batista Anticipated date of discharge: 05/27/18 Brief History from admission: 73-year-old white female with a history of hypothyroidism, C. difficile presents with 2-day history of right-sided abdominal pain, nausea, vomiting, diarrhea, and fever. Patient reports having loose stools almost every hour and due to the symptoms came to the emergency room for evaluation. She also reports a history of C. difficile and was worried that this may be a recurrence of her C. difficile. She has not seen any blood in her stools. She has not had any unusual food intake during the past week. She reports she had a colonoscopy performed about 2 years ago which only showed some polyps. She has not had any recent weight loss. DS: Diagnosis - Discharge Diagnosis (1) Colitis Status: Acute (2) GI bleed Status: Acute DS: Medications - Discharge Medications Prescriptions: metronidazole [Flagyl] 500 mg PO TID #30 tab sulfamethoxazole-trimethoprim [Bactrim DS] 1 tab PO BID #20 tab DS: Summary Hospital Course: 73-year-old female who originally presented the hospital with a 2-day history of right-sided abdominal pain, nausea, vomiting, diarrhea, fever. Patient was having loose stools almost every hour and then she came to emergency department. Patient had not noticed any blood in her stool the time. However patient did undergo occult blood study in the emergency department and was positive. Additional workup emergency department also showed right colon suggestive of mild colitis. Because of the finding is recommended by ER physician the patient be admitted to hospital for further evaluation and management. Patient did undergo IV fluid hydration, patient was started on empirical antibiotics to include Azactam and Flagyl because the patient is allergic to fluoroquinolones and penicillin. The patient had monitoring of her hemoglobin hematocrit which remained stable during her stay in the hospital. Patient had GI consultation who recommended procedures to be done to include EGD and colonoscopy. Patient did undergo prep last evening with increased number of bowel movements, however there was no other melena noted or coloration to her stool. Patient did undergo EGD and colonoscopy. There was esophagitis noted, internal and external hemorrhoids. Recommending EGD and colonoscopy and 1 year. Discussion with GI recommended continuation of antibiotics until course completed, follow-up with outpatient GI. Patient clinically stable this time. We will plan discharge home in stable condition. - Time Spent with Patient Total time spent providing and/or coordinating discharge services: Greater than 30 minutes - Quality: VTE Deep Vein Thrombosis/Pulmonary Embolism Present on Admission: No Exam Vital signs: Vital Signs 05/26/18 16:00 05/26/18 20:00 05/27/18 00:00 Temperature 98.7 F 99 F 97.7 F Pulse Rate 79 70 73 Respiratory Rate 17 20 20 Blood Pressure 150/68 H 142/85 H 141/73 H Pulse Oximetry 98 96 99 05/27/18 08:00 05/27/18 11:42 05/27/18 13:40 Temperature 97.7 F 97.7 F 97.5 F L Pulse Rate 66 66 82 Respiratory Rate 16 16 16 Blood Pressure 150/69 H 150/69 H 161/79 H Pulse Oximetry 96 96 100 05/27/18 14:04 Temperature Pulse Rate 75 Respiratory Rate 16 Blood Pressure 158/77 H Pulse Oximetry Intake & Output 05/26/18 05/27/18 05/27/18 18:59 06:59 18:59 Intake Total 1300 / 1300 3760 / 3760 600 / 600 Balance 1300 / 1300 3760 / 3760 600 / 600 Weight 70.9 kg Intake: IV 1300 / 1300 1400 / 1400 100 / 100 NS Inj 1,000 ML @ 100 mls/hr IV 1000 / 1000 1000 / 1000 .CONT .Q10H SHAKIR Rx#:[id number] Azactam Inj 1,000 MG In NS Inj 100 / 100 200 / 200 100 ML @ 200 mls/hr IV.SIG Q8H SHAKIR Rx#:[id number] Flagyl 500 MG Inj 100 ML @ 100 200 / 200 200 / 200 100 / 100 mls/hr IV.SIG Q6H SHAKIR Rx#: [id number] Oral 360 / 360 Oral Supplement 1999 / 1999 Anesthesia Amount 500 / 500 Other: # Voids 10 Date of Last Bowel Movement 05/25/18 # Bowel Movements 12 Narrative: GENERAL: Well-developed, well-nourished, in no acute distress. alert and orientated HEENT: Head is normocephalic without any lesions or masses noted. Facial features are symmetric. Eyes: Extraocular muscles are intact. Conjunctivae were clear. NECK: Supple without any masses. Trachea midline no deviation. No JVD, CARDIAC: Regular rhythm, regular rate. S1/S2 are heard. No murmurs gallops or rubs. LUNGS: Clear to auscultation bilaterally. No wheeze, rhonchi or rales. No use of accessory muscles on inspiration or expiration. ABDOMEN: Soft, nontender. Nondistended. Bowel sounds heard in all 4 quadrants. No organomegaly or masses. Negative rebound, negative guarding EXTREMITIES: No edema, pulses are equal bilaterally. No cyanosis or clubbing NEUROLOGY: Mood and affect appear appropriate. Cranial nerves II through XII grossly intact. Moving all extremities, speech is clear Results Procedures completed during hospitalization: EGD IMPRESSIONS: 1. There was LA Class A esophagitis noted; biopsy was performed 2. Retroflexed views revealed no abnormalities COLONOSCOPY IMPRESSIONS: 1. There was moderate diverticulosis noted in the sigmoid colon 2. Unable to advance scope beyond the sigmoid colon 3. Retroflexed views revealed internal hemorrhoids 4. Retroflexed views revealed medium internal hemorrhoids 5. Revealed external hemorrhoids Pending studies at discharge: Pending at discharge 05/27/18 Surgical [PTH] Routine Labs on day of discharge: Labs from last 24 hours 05/27/18 05/26/18 06:25 20:00 CBC w Diff Slide review pending WBC 4.5 RBC 3.79 L Hgb 11.7 12.6 Hct 33.2 L 37.2 MCV 87.7 MCH 30.8 MCHC 35.2 RDW 13.9 Plt Count 88 L MPV 7.3 Neut % (Auto) 55.4 Lymph % (Auto) 32.1 [place] % (Auto) 10.5 H Eos % (Auto) 1.6 Baso % (Auto) 0.4 Neut # (Auto) 2.4 Lymph # (Auto) 1.5 [place] # (Auto) 0.5 Eos # (Auto) 0.1 Baso # (Auto) 0.0 WBC Differential . Diff Scan Auto diff confirmed Differential Comment . Platelet Estimate Low L Platelet Morphology Normal RBC Morphology Normal Preliminary micro results at discharge 05/24/18 23:10 Aerobic Blood Culture - Preliminary Blood - Peripheral No growth in 3 days Anaerobic Blood Culture - Preliminary No growth in 3 days 05/24/18 23:00 Aerobic Blood Culture - Preliminary Blood - Peripheral No growth in 3 days Anaerobic Blood Culture - Preliminary No growth in 3 days - Impressions ITS Impressions Abdomen/Pelvis CT 05/24/18 22:24 CONCLUSION: Changes involving the right colon suggestive of mild colitis Discharge Plan - Discharge Disposition Patient Disposition: 01 Discharge Home - Discharge Condition Condition: Stable - Discharge Order Discharge Orders: Discharge Order (Routine); Ordered 05/27/18 Ordered By: Cody Banks - Discharge Details Anticipated Discharge Date: 05/27/18 - Physicians Team Primary Care Provider: Primary Care Cynthia Barber Attending Provider: Valeriano Batista Other Providers: Rowena Frances MD
--- NOTE | 2018-05-27 15:51 | ECG ---
Date Performed: 05/27/2018 Time Performed: 11:59:17 PTAGE: 73 years EKG: ELECTRONIC VENTRICULAR PACEMAKER ABNORMAL RHYTHM ECG NO PREVIOUS TRACING DOCTOR: Rodolfo Amato Interpretating Date/Time 05/27/2018 15:49:47
== END 2018-05-27 17:29 | disposition home or self-care (01) ==
LOC: PHED 20:28 → INTOOBSV 05-25 00:33 → PHEDA 05-25 00:33 → PH3 05-25 02:11
PROVIDERS: ADMIT Hospitalist; ATTEND Hospitalist
PROC: PANENDO (2018-05-27 13:12)
PROC: COLONOS (2018-05-27 13:12)